=== PATIENT | female | born 1955 | race Caucasian/White ===

== ENCOUNTER → 2017-06-13 | Outpatient (CLI) | payer BC ==
--- NOTE | 2017-06-26 15:39 | MAMMOGRAPHY REPORT ---
BILATERAL DIGITAL SCREENING MAMMOGRAM WITH CAD: 06/13/2017 CLINICAL HISTORY: Routine screening examination. TECHNIQUE: Bilateral CC and MLO views of the breasts with and without implant this placement views we re obtained. Current study was also evaluated with a Computer Aided Detection (CAD) system. COMPARISON: Comparison is made to exams dated: 05/06/2014 mammogram, 02/08/2011 mammogram, and 03/30/20 09 mammogram - [facility]. BREAST COMPOSITION: The tissue of both breasts is almost entirely fatty. FINDINGS: Bilateral subpectoral saline implants are intact. No suspicious mass, architectural distor tion or cluster of suspicious microcalcifications is seen. IMPRESSION: ACR BI-RADS CATEGORY 1: NEGATIVE There is no mammographic evidence of malignancy. A 1 year screening mammogram is recommended. The pa tient will receive written notification of the results. Approximately 10% of breast cancers are not detected with mammography. A negative mammographic report should not delay biopsy if a clinically suggestive mass is present. Romy Sun M.D. ay/:06/26/2017 15:07:26 Marketing Programs Manager: Pratima Jacques RT(R)(M)(BD), [facility] letter sent: Normal 1/2 BI-RADS Code: ACR BI-RADS Category 1: Negative
== END | disposition home or self-care (01) ==
LOC: C.MAMM 14:45
PROVIDERS: ATTEND Physician Assistant
DX: Z12.31 Encounter for screening mammogram for malignant neoplasm of breast (principal)

== ENCOUNTER → 2017-07-11 | Outpatient (CLI) | payer BC | END | disposition home or self-care (01) | LOC: C.PAPS 16:58 | PROVIDERS: ATTEND Obstetrics & Gynecology | DX: Z01.419 Encounter for gynecological examination (general) (routine) without abnormal findings (principal) ==

== ENCOUNTER → 2017-09-15 | Outpatient (CLI) | payer BC | END | disposition home or self-care (01) | LOC: C.PATHSPEC 17:11 | PROVIDERS: ATTEND Obstetrics & Gynecology | DX: N87.1 Moderate cervical dysplasia (principal); R87.612 Low grade squamous intraepithelial lesion on cytologic smear of cervix (LGSIL) ==

== ENCOUNTER → 2017-11-07 | Outpatient (CLI) | payer BC ==
--- NOTE | 2017-11-07 08:40 | DIAGNOSTIC IMAGING REPORT ---
(BARIUM SWALLOW) ESOPHAGUS CLINICAL HISTORY: R13.10 DysphagiaPatient scheduled for 11/06/17 @ 8:30 E X0D E RAD COMPARISON STUDY: None FLUOROSCOPY TIME: 1.1 minute. FINDINGS: Patient initiates swallowing function well. Esophagus is normal in course and caliber. There is no evidence for aspiration. Barium tablet passed easily to the stomach. IMPRESSION: Normal study. The above report was generated using voice recognition software. It may contain grammatical, syntax or spelling errors. Electronically signed by: Jassi Doran M.D. 11/07/2017 8:39 AM Dictated Date/Time: 11/07/2017 8:35 AM
== END | disposition home or self-care (01) ==
LOC: C.RAD 08:07
PROVIDERS: ATTEND Physician Assistant
DX: R13.10 Dysphagia, unspecified (principal)

== ENCOUNTER 2018-02-26 12:03 | Emergency (ER) | payer BC, OTHER ==
[~2018-02-26] VITALS: Ht 161.3 cm; Wt 61.5 kg
[2018-02-26 12:03] VITALS: TEMP 36.9; Ht 161.3 cm; Wt 61.5 kg
[2018-02-26] MEDS ORDERED: SODIUM CHLORIDE 0.9% 1000ML 1,000 ML IV STA (12:19)
[2018-02-26] MEDS ORDERED: ACETAMINOPHEN 500 MG TAB PO STA (12:19)
--- NOTE | 2018-02-26 12:27 | EMERGENCY ROOM VISIT NOTE ---
History Report prepared by Ck: Danilo Mejia Under the Supervision of: Dr. Skinny Hope M.D. First contact with patient: 12:10 Chief Complaint: SYNCOPE (NEAR SYNCOPE) Stated Complaint: Arm pain History of Present Illness The patient is a 62 year old female who presents to the Emergency Room due to a near syncope episode this morning. Patient states that she began to feel dizzy and tired while standing at work so she went into the break room and sat down. She states that she got a headache after sitting down. She describes the headache as "not a normal headache but that her head feels foggy". She adds that she did not have a headache this morning. She adds that she felt nauseas. She states that she does not feel nauseas in the ER. 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 She states that it did not feel abnormally hot at her workplace today. Patient adds that she got a pneumonia booster in her left arm yesterday. She states that she has had constant pain in her left arm since last night. Patient states that she sees a club former for her high cholesterol and due to a family history of heart problems. She adds that she takes Lipitor and low-dose Aspirin. Pertinent past medical history includes attention deficit disorder. Patient denies a history of heart attacks and arrhythmias. Patient denies fevers, chills, coughs, congestion, and chest pain, shortness of breath. Source of History: patient Onset: This morning Position: head, arm (left) Modifying Factors (Relieving): other (None) Associated Symptoms: + headache (Foggy) Note: Patient has dizziness Review of Systems See HPI for pertinent positives and negatives. A total of ten systems were reviewed and were otherwise negative. Past Medical & Surgical Medical Problems: (1) ADD (attention deficit disorder) Family History Heart disease Social History Smoking Status: Never Smoker Occupation Status: employed Current/Historical Medications Scheduled Aspirin (Aspirin Ec), 81 MG PO DAILY Atorvastatin (Lipitor), 10 MG PO DAILY Estradiol Vaginal (Estrace), 1 APPLN PV WK Methylphenidate Hcl (Concerta), 54 MG PO QAM Allergies Coded Allergies: No Known Allergies (Unverified , 02/26/18) Physical Exam Vital Signs Date Time Temp Pulse Resp B/P (MAP) Pulse Ox O2 Delivery O2 Flow Rate FiO2 02/26/18 15:29 83 18 113/65 96 02/26/18 14:10 87 19 122/74 95 Room Air 02/26/18 12:44 94 16 159/97 99 Room Air 02/26/18 12:42 98 Room Air 02/26/18 12:19 95 02/26/18 12:03 36.9 89 13 159/97 99 Room Air Physical Exam GENERAL: Awake, alert, fatigued-appearing, in no distress HENT: Normocephalic, atraumatic. Oropharynx unremarkable other than dry mucous membranes. EYES: Normal conjunctiva. Sclera non-icteric. NECK: Supple. No nuchal rigidity. FROM. No JVD. RESPIRATORY: Clear to auscultation. CARDIAC: Regular rate, normal rhythm. Extremities warm and well perfused. Pulses equal. ABDOMEN: Soft, non-distended. No tenderness to palpation. No rebound or guarding. No masses. RECTAL: Deferred. MUSCULOSKELETAL: Chest examination reveals no tenderness. The back is symmetrical on inspection without obvious abnormality. There is no CVA tenderness to palpation. No joint edema. LOWER EXTREMITIES: Calves are equal size bilaterally and non-tender. No edema. No discoloration. NEURO: Normal sensorium. No sensory or motor deficits noted. Normal cerebellar function with [id number]. SKIN: No rash or jaundice noted. Medical Decision & Procedures ER Provider Diagnostic Interpretation: Radiology results as stated below per my review and radiologist interpretation: CHEST ONE VIEW PORTABLE CLINICAL HISTORY: Atypical chest pain COMPARISON STUDY: No previous studies for comparison. FINDINGS: The cardiac and mediastinal contours are normal. There is no evidence of focal pulmonary consolidation. There is no evidence of failure. No pleural effusions are visualized.[ IMPRESSION: No active disease in the chest. Electronically signed by: Julius Zambrano M.D. 02/26/2018 1:03 PM Laboratory Results 02/26/18 12:35 Red Blood Count 4.74, Mean Corpuscular Volume 87.1, Mean Corpuscular Hemoglobin 30.6, Mean Corpuscular Hemoglobin Concent 35.1, Mean Platelet Volume 9.6, Neutrophils (%) (Auto) 85.9, Lymphocytes (%) (Auto) 8.0, Monocytes (%) (Auto) 4.7, Eosinophils (%) (Auto) 0.9, Basophils (%) (Auto) 0.2, Neutrophils # (Auto) 10.19, Lymphocytes # (Auto) 0.95, Monocytes # (Auto) 0.56, Eosinophils # (Auto) 0.11, Basophils # (Auto) 0.02 02/26/18 12:35 Test 02/26/18 12:35 02/26/18 14:24 White Blood Count 11.86 K/uL (4.8-10.8) Red Blood Count 4.74 M/uL (4.2-5.4) Hemoglobin 14.5 g/dL (12.0-16.0) Hematocrit 41.3 % (37-47) Mean Corpuscular Volume 87.1 fL (80-100) Mean Corpuscular Hemoglobin 30.6 pg (25-34) Mean Corpuscular Hemoglobin Concent 35.1 g/dl (32-36) Platelet Count 207 K/uL (130-400) Mean Platelet Volume 9.6 fL (7.4-10.4) Neutrophils (%) (Auto) 85.9 % Lymphocytes (%) (Auto) 8.0 % Monocytes (%) (Auto) 4.7 % Eosinophils (%) (Auto) 0.9 % Basophils (%) (Auto) 0.2 % Neutrophils # (Auto) 10.19 K/uL (1.4-6.5) Lymphocytes # (Auto) 0.95 K/uL (1.2-3.4) Monocytes # (Auto) 0.56 K/uL (0.11-0.59) Eosinophils # (Auto) 0.11 K/uL (0-0.5) Basophils # (Auto) 0.02 K/uL (0-0.2) RDW Standard Deviation 40.3 fL (36.4-46.3) RDW Coefficient of Variation 12.5 % (11.5-14.5) Immature Granulocyte % (Auto) 0.3 % Immature Granulocyte # (Auto) 0.03 K/uL (0.00-0.02) Anion Gap 7.0 mmol/L (3-11) Est Creatinine Clear Calc Drug Dose 45.8 ml/min Estimated GFR () 65.0 Estimated GFR (Non- 56.1 BUN/Creatinine Ratio 19.1 (10-20) Calcium Level 8.7 mg/dl (8.5-10.1) Magnesium Level 2.0 mg/dl (1.8-2.4) Total Bilirubin 0.8 mg/dl (0.2-1) Direct Bilirubin 0.2 mg/dl (0-0.2) Aspartate Amino Transf (AST/SGOT) 25 U/L (15-37) Alanine Aminotransferase (ALT/SGPT) 34 U/L (12-78) Alkaline Phosphatase 112 U/L (45-117) Total Protein 7.1 gm/dl (6.4-8.2) Albumin 3.9 gm/dl (3.4-5.0) Lipase 110 U/L (73-393) Thyroid Stimulating Hormone (TSH) 0.847 uIu/ml (0.300-4.500) Troponin I < 0.015 ng/ml (0-0.045) Laboratory results reviewed by me Medications Administered Medications (Trade) Dose Ordered Sig/Paulo Route Start Time Stop Time Status Last Admin Dose Admin Sodium Chloride 1,000 ml @ 999 mls/hr Q1H1M STAT IV 02/26/18 12:19 02/26/18 13:19 DC 02/26/18 12:40 999 MLS/HR Acetaminophen (Tylenol Tab) 1,000 mg NOW STAT PO 02/26/18 12:19 02/26/18 12:21 DC 02/26/18 12:40 1,000 MG ECG Per My Interpretation Indication: syncope (Near) Rate (beats per minute): 88 Rhythm: normal sinus Findings: nonspecific-ST abn (and T wave abnormality in inferior and lateral), other (Normal [place]) ED Course 1211: The patient was evaluated in room B7. A complete history and physical exam was performed. 1421: I reassessed the patient. She states that she is feeling better. 1532: I reevaluated the patient. Discussed results and discharge instructions. She verbalized understanding and agreement. The patient is ready for discharge. Medical Decision I reviewed the patient's past medical history, medications, and the nursing notes as described above. Differential diagnosis: Etiologies such as vasovagal event, infection, hypoglycemia, electrolyte abnormalities, cardiac sources, intracerebral event, toxicologic, neurologic, as well as others were entertained. The patient is a 62-year-old woman who presents to emergency department with headache and lightheadedness when she was at work today in the setting of receiving a pneumonia vaccine yesterday per hpi. On arrival the patient is fatigued appearing but no acute distress, afebrile stable vital signs. She is neuro intact including normal cerebellar function with [id number]. EKG unremarkable. Chest x-ray negative. WBC 11 nonspecific. Labs otherwise unremarkable including troponin within normal limits.. BUN/creatinine ~20 suggesting mild dehydration. Patient denies any chest pain or shortness of breath and otherwise the patient's heart score 3, low risk thus ACS not likely. The patient feeling improved after IV fluid hydration, Tylenol. Ambulating without difficulty. Symptoms were most likely related to mild dehydration. Findings and plan for follow-up reviewed with patient. Patient agreeable and d/c 'd per discharge instructions. Medication Reconcilliation Current Medication List: was personally reviewed by me Blood Pressure Screening Patient's blood pressure: Normal blood pressure Blood pressure disposition: Did not require urgent referral Impression Primary Impression: Near syncope Additional Impression: Dehydration Scribe Attestation The scribe's documentation has been prepared under my direction and personally reviewed by me in its entirety. I confirm that the note above accurately reflects all work, treatment, procedures, and medical decision making performed by me. Departure Information Dispostion Home / Self-Care Referrals Deloris Iraheta .MARIA FERNANDA (PCP) Forms HOME CARE DOCUMENTATION FORM, IMPORTANT VISIT INFORMATION Patient Instructions ED Dehydration, ED Near Syncope Rebekah, Gina [facility] Additional Instructions Please follow up with your primary care physician in the next 1-3 days for re- evaluation. Your symptoms are most likely due to mild dehydration. Otherwise, your exam, EKG, chest xray, and lab results did not show signs of an emergent condition at this time. Drink plenty of fluids to ensure hydration. Return to the emergency department for worsening symptoms as described in the accompanying instructions. Problem Qualifiers
[2018-02-26] MEDS ORDERED: ESTCR PV (12:40)
[2018-02-26] MEDS ORDERED: ATOR10TA82 PO (12:40)
[2018-02-26] MEDS ORDERED: ASPI81TA28 PO (12:40)
[2018-02-26] MEDS ORDERED: CNC/54 PO (12:40)
[2018-02-26 12:42] VITALS: O2SAT 98
[2018-02-26 12:46] LABS: BASO % 0.2 %; BASO ABS # 0.02 K/uL (0-0.2); EOS % 0.9 %; EOS ABS # 0.11 K/uL (0-0.5); HEMATOCRIT 41.3 % (37-47); HEMOGLOBIN 14.5 g/dL (12.0-16.0); IG# 0.03 K/uL (0.00-0.02); LYMPH ABS # 0.95 K/uL (1.2-3.4); MEAN CELL VOLUME 87.1 fL (80-100); MEAN CORPUSCULAR HEMOGLOBIN 30.6 pg (25-34); MEAN CORPUSCULAR HGB CONC 35.1 g/dl (32-36); MEAN PLATELET VOLUME 9.6 fL (7.4-10.4); MONO % 4.7 %; MONO ABS # 0.56 K/uL (0.11-0.59); NEUT % 85.9 %; NEUT ABS # 10.19 K/uL (1.4-6.5); PLATELET COUNT 207 K/uL (130-400); RED CELL DISTRIBUTION WIDTH CV 12.5 % (11.5-14.5); RED CELL DISTRIBUTION WIDTH SD 40.3 fL (36.4-46.3); WHITE BLOOD COUNT 11.86 K/uL (4.8-10.8)
[2018-02-26 13:04] LABS: ALBUMIN 3.9 gm/dl (3.4-5.0); ALT/SGPT 34 U/L (12-78); AST/SGOT 25 U/L (15-37); BLOOD UREA NITROGEN 20 mg/dl (7-18); CALCIUM 8.7 mg/dl (8.5-10.1); CARBON DIOXIDE 25 mmol/L (21-32); CREATININE 1.05 mg/dl (0.60-1.20); GLUCOSE 105 mg/dl (70-99); LIPASE 110 U/L (73-393); POTASSIUM 3.9 mmol/L (3.5-5.1); SODIUM 138 mmol/L (136-145)
--- NOTE | 2018-02-26 13:05 | DIAGNOSTIC IMAGING REPORT ---
CHEST ONE VIEW PORTABLE CLINICAL HISTORY: Atypical chest pain COMPARISON STUDY: No previous studies for comparison. FINDINGS: The cardiac and mediastinal contours are normal. There is no evidence of focal pulmonary consolidation. There is no evidence of failure. No pleural effusions are visualized.[ IMPRESSION: No active disease in the chest. Electronically signed by: Julius Zambrano M.D. 02/26/2018 1:03 PM Dictated Date/Time: 02/26/2018 1:03 PM
[2018-02-26 13:15] LABS: ALKALINE PHOSPHATASE 112 U/L (45-117); TOTAL PROTEIN 7.1 gm/dl (6.4-8.2)
[2018-02-26 15:29] VITALS: BP 113/65; PULSE 83; O2SAT 96
== END 2018-02-26 15:30 | disposition home or self-care (01) ==
LOC: C.EDB 12:03 → EDBD 12:03 → C.EDB 15:30
DX: R55 Syncope and collapse (principal); E86.0 Dehydration; F98.8 Other specified behavioral and emotional disorders with onset usually occurring in childhood and adolescence; Z79.82 Long term (current) use of aspirin; Z79.899 Other long term (current) drug therapy